=== PATIENT | male | born 1955 ===

== ENCOUNTER → 2017-08-23 | Outpatient (CLI) | payer BC ==
[~2017-08-23] MED LIST: ASPI81TA86 PO; AZIT-17 PO; LOR75 PO
--- NOTE | 2017-08-23 11:32 | RADIOLOGY IMAGING REPORT ---
FACILITY: [facility] - [place] PATIENT NAME: Ike Perry : 1955 MR: [id number] V: [id number] EXAM DATE: ORDERING PHYSICIAN: JEANNIE NOLAND TECHNOLOGIST: [place] [facility] [place]ke [place] : 1955 Visit/Account:[id number] Date of Sevice: 08/23/2017 EXAMINATION: Orbit radiograph single view HISTORY: Pre-MRI screening. COMPARISON: None. FINDINGS: Single view of the orbits is obtained. No radiopaque or metallic foreign bodies of either orbit. Visualized bony structures are intact. IMPRESSION: Orbits are cleared for MRI. Report Dictated By: Sabina Guerra MD at 08/23/2017 11:27 AM Report E-Signed By: Sabina Guerra MD at 08/23/2017 11:28 AM WSN:[email or web address]
--- NOTE | 2017-08-23 11:39 | RADIOLOGY IMAGING REPORT ---
FACILITY: [facility] PATIENT NAME: Ike Perry : 1955 MR: [id number] V: [id number] EXAM DATE: ORDERING PHYSICIAN: JEANNIE NOLAND TECHNOLOGIST: Location: [facility] - [place] Patient: Ike Perry : 1955 Visit/Account:[id number] Date of Sevice: 08/23/2017 EXAMINATION: Doppler ultrasound carotid HISTORY: Numbness left lower extremity. Elevated serum creatinine. COMPARISON: None. TECHNIQUE: Real-time grayscale, color flow and Doppler sonography of the cervical carotid and vertebr al arteries is performed. Stenosis % is determined from velocity criteria extrapolated from diameter data as defined by the Soc iety of Radiologists in Ultrasound Consensus Conference Radiology 2003; 229;340-346. FINDINGS: Plaque: None. Waveforms: Normal. Vertebral arteries: Antegrade flow in both vertebral arteries. Peak systolic velocities are listed below in centimeters/second: Right: CCA proximal: 109 CCA mid: 91 CCA distal: 89 Bulb: 56 ICA proximal: 79 ICA mid: 70 ICA distal: 65 ECA: 75 Vertebral: 42 ICA/CCA ratio: 0.9 Left: CCA proximal: 116 CCA mid: 109 CCA distal: 72 Bulb: 53 ICA proximal: 66 ICA mid: 82 ICA distal: 68 ECA: 49 Vertebral: 57 ICA/CCA ratio: 0.8 IMPRESSION: Normal carotid ultrasound without plaque or stenosis. Report Dictated By: Sabina Guerra MD at 08/23/2017 11:31 AM Report E-Signed By: Sabina Guerra MD at 08/23/2017 11:33 AM WSN:[email or web address]
--- NOTE | 2017-08-23 12:20 | RADIOLOGY IMAGING REPORT ---
[place] [facility] [place]IENT NAME: Ike Perry : 1955 MR: [id number] V: [id number] EXAM DATE: ORDERING PHYSICIAN: JEANNIE NOLAND TECHNOLOGIST: Location: [facility] - [place] Patient: Ike Perry : 1955 Visit/Account:[id number] Date of Sevice: 08/23/2017 BRAIN W/O CONTRAST Comparisons: None. Additional pertinent history: Numbness of the left lower extremity. TECHNIQUE: Multiplanar, multisequence brain MRI was performed without gadolinium contrast. FINDINGS: Sagittal midline structures and craniocervical junction: Negative. Midline shift: None. Ventricles: Negative. Brain parenchyma: Diffusion weighted imaging: Negative. Gradient sequence: Negative. T2 weighted FLAIR images: Negative. Extra-axial spaces: Negative. Dural venous sinuses and major arterial flow voids: Negative. Mastoid air cells and paranasal sinuses: Negative. Surrounding soft tissues and orbits: Negative. Impression: Normal brain MRI without contrast. Report Dictated By: Mehrdad Barnett MD at 08/23/2017 12:12 PM Report E-Signed By: Mehrdad Barnett MD at 08/23/2017 12:15 PM WSN:[id number]
--- NOTE | 2017-08-23 13:12 | RADIOLOGY IMAGING REPORT ---
[place] [facility] [place] NAME: Ike Perry : 1955 MR: [id number] V: [id number] EXAM DATE: ORDERING PHYSICIAN: JEANNIE NOLAND TECHNOLOGIST: Location: [facility] Patient: Ike Perry : 1955 Visit/Account:[id number] Date of Sevice: 08/23/2017 EXAMINATION: Ultrasound renal HISTORY: Elevated serum creatinine. COMPARISON: None. FINDINGS: Kidneys: Right kidney: 8.8 cm, normal parenchymal thickness and echogenicity. Left kidney: 9.8 cm, normal parenchymal thickness and echogenicity. Uniform and symmetric blood flow in each kidney by Doppler ultrasound. Resistive index is normal on the right at 0.7 and on the left at 0.6. Hydronephrosis: None. Bladder: Distended without focal abnormality. Normal bilateral ureteral jets visualized. Prevoid vo lume is 333 mL, post void volume is 28 mL. Abdominal aorta and IVC: Patent by Doppler ultrasound. IMPRESSION: 1. Normal sonographic appearance of the kidneys. 2. Small post void residual of 28 mL. Report Dictated By: Sabina Guerra MD at 08/23/2017 1:06 PM Report E-Signed By: Sabina Guerra MD at 08/23/2017 1:08 PM WSN:[email or web address]
== END ==
LOC: MRI 03:26
PROVIDERS: ATTEND Internal Medicine
DX: R20.0 Anesthesia of skin (principal); R79.89 Other specified abnormal findings of blood chemistry
CPT/HCPCS: 70030; 70551; 76705; 93880